=== PATIENT | female | born 1970 ===

== ENCOUNTER 2018-04-25 12:43 | Outpatient (CLI) | payer OTHER ==
--- NOTE | 2018-04-25 13:42 | ULT ---
BILATERAL RENAL ULTRASOUND: Date: 04/25/18 HISTORY: Chronic renal insufficiency. FINDINGS: Multiple longitudinal and transverse images of the kidneys and bladder obtained using a multihertz cu rvilinear transducer. Real-time and color flow images demonstrate both kidneys to be of normal contou r, axis, and size. Right kidney measures 10.9 cm and the left kidney measures 10.0 cm from pole to po le. No evidence of renal parenchymal mass is seen. No evidence of hydronephrosis seen. Areas of hyperechogenicity seen in both kidneys, possibly representing renal calculi or vascular calc ifications. Correlate with CT. The urinary bladder is extensively collapsed without adequate filling to comment upon. Repeat sonogra m of the urinary bladder after the bladder is filled by be of use to further characterize the urinary bladder. IMPRESSION: 1. No evidence of hydronephrosis. 2. Possible renal calculi or vascular calcifications. POS: [facility]
== END 2018-04-25 12:44 | disposition home or self-care (01) ==
LOC: BICULT 12:43
PROVIDERS: ATTEND Internal Medicine Nephrology
DX: N18.3 Chronic kidney disease, stage 3 (moderate) (principal)
CPT/HCPCS: 76770

== ENCOUNTER 2018-06-21 10:08 | Outpatient (CLI) | payer OTHER ==
--- NOTE | 2018-06-21 13:02 | ULT ---
RENAL ULTRASOUND: INDICATIONS: History of chronic kidney disease. COMPARISON: 04/25/2018 FINDINGS: The right kidney measures 9.6 x 5.2 x 5 cm. The right renal cortical thickness is 1.76 cm. The left kidney measures 9.4 x 4.5 x 5.6 cm. The left renal cortical thickness is 1.7 cm. No hydron ephrosis is evident. The bladder measures 47.05 mL (pre-void volume status). IMPRESSION: No focal renal lesion or hydronephrosis is demonstrated. POS: [facility]
== END 2018-06-21 10:09 | disposition home or self-care (01) ==
LOC: BICULT 10:08
PROVIDERS: ATTEND Family Medicine
DX: E11.22 Type 2 diabetes mellitus with diabetic chronic kidney disease (principal); N18.3 Chronic kidney disease, stage 3 (moderate)
CPT/HCPCS: 76770